=== PATIENT | female | born 1965 | race African-American/Black ===

== ENCOUNTER 2017-10-19 06:13 | Inpatient (IN) | payer OTHER ==
[~2017-10-19] VITALS: Ht 175.3 cm; Wt 63.6 kg
[~2017-10-19 06:13] MED LIST: ATEN25TA PO; HYDR-4174 PO; PHEN12S PR
[2017-10-19] MEDS ORDERED: GABA-529 PO (06:27)
[2017-10-19] MEDS ORDERED: OXYC10 PO (06:27)
[2017-10-19] MEDS ORDERED: SODIUM CHLORIDE 0.9% 1,000 ML IV ONE ×4 (06:30→16:00)
[2017-10-19] MEDS: METOCLOPRAMIDE HCL 5 MG/ML 2 ML VIAL IVP ONE ×2 (06:30→06:31)
[2017-10-19] MEDS ORDERED: PERCT10 PO (06:35)
[2017-10-19] MEDS ORDERED: OMEP10 PO (06:35)
[2017-10-19] MEDS ORDERED: METOCLOPRAMIDE HCL 5 MG/ML 2 ML VIAL IM ONE (06:45)
[2017-10-19 07:58] LABS: BASOPHILS % (AUTO) 0.5 % (0.0-2.0); EOSINOPHILS % (AUTO) 0 % (1.0-6.0); HEMATOCRIT 37.8 % (36-46); LYMPHOCYTES # (AUTO) 0.8 K/uL (1.0-4.8); LYMPHOCYTES % (AUTO) 8.5 % (22.0-44.0); MEAN CORPUSCULAR HGB CONC 34.4 G/dL (31.0-37.0); MEAN CORPUSCULAR VOLUME 87 fL (80-100); MONOCYTES # (AUTO) 0.7 K/uL (0.1-1.0); MONOCYTES % (AUTO) 7.9 % (2.0-9.0); NEUTROPHILS # (AUTO) 7.3 K/uL (1.8-7.7); NEUTROPHILS % (AUTO) 83.1 % (40.0-70.0); PLATELET COUNT (AUTO) 234 K/uL (150-450); RED BLOOD CELL COUNT(AUTO) 4.33 MIL/uL (4.00-5.20); RED CELL DISTRIBUTION WIDTH 16.3 % (11.5-14.5)
[2017-10-19 08:09] LABS: ALANINE AMINOTRANSFERASE 55 U/L (12-78); ALKALINE PHOSPHATASE 61 U/L (46-116); ANION GAP 14 mmol/L (8-16); ASPARTATE AMINOTRANSFERASE 77 U/L (15-37); BILIRUBIN,TOTAL 0.5 mg/dL (0.1-1.0); CALCIUM, TOTAL 9.1 mg/dL (8.8-10.5); CARBON DIOXIDE 29 mmol/L (22-29); CHLORIDE 104 mmol/L (98-107); CREATININE 0.74 mg/dL (0.60-1.30); GLOMERULAR FILTR. RATE CALC > 60 mL/min (>60); GLUCOSE,RANDOM 111 mg/dL (70-110); LIPASE 142 U/L (73-393); SODIUM SERUM 147 mmol/L (136-145); TOTAL PROTEIN, SERUM 8.2 g/dL (6.4-8.2); UREA NITROGEN, BLOOD 14 mg/dL (7-18)
[2017-10-19 08:13] LABS: POTASSIUM 2.6 mmol/L (3.5-5.1)
[2017-10-19] MEDS ORDERED: POTASSIUM CHLORIDE 10% 40 MEQ/30 ML LIQUID UDCUP PO ONE (08:45)
[2017-10-19] MEDS ORDERED: PB/HYOSCY/ATR/SCOP/LIDO/MAALOX 55 ML BOTTLE PO ONE (08:45)
[2017-10-19] MEDS ORDERED: POTASSIUM CHL 10 MEQ/WATER 50 ML IV ONE ×2 (08:45→10:15)
[2017-10-19] MEDS ORDERED: DiphenhydrAMINE HCL 50 MG/ML VIAL IVP ONE (09:15)
[2017-10-19] MEDS ORDERED: 0.9% SODIUM CHLORIDE 10 ML SYRINGE IVP PRN (11:00)
[2017-10-19] MEDS ORDERED: ACETAMINOPHEN 325 MG TABLET PO PRN ×2 (11:00→16:00)
[2017-10-19 11:26] LABS: AMPHET/METH SCREEN,URINE NEGATIVE (NEGATIVE); BARBITURATE SCREEN, URINE NEGATIVE (NEGATIVE); BENZODIAZEPINES SCREEN,URINE NEGATIVE (NEGATIVE); CANNABINOID SCREEN,URINE POSITIVE (NEGATIVE); COCAINE SCREEN,URINE NEGATIVE (NEGATIVE); METHADONE SCREEN, URINE NEGATIVE (NEGATIVE); OPIATE SCREEN,URINE POSITIVE (NEGATIVE)
[2017-10-19 11:27] LABS: PHENCYCLIDINE SCREEN,URINE NEGATIVE (NEGATIVE)
[2017-10-19 11:30] LABS: APPEARANCE,URINE CLOUDY (CLEAR); BILIRUBIN,URINE NEGATIVE (NEGATIVE); GLUCOSE, URINE (UA) NEGATIVE (NEGATIVE); KETONES,URINE >=80 mg/dL (NEGATIVE); LEUKOCYTE ESTERASE ,URINE NEGATIVE (NEGATIVE); NITRATE,URINE NEGATIVE (NEGATIVE); OCCULT BLOOD,URINE LARGE (NEGATIVE); PROTEIN,URINE SEE CONFIRM (NEGATIVE); UROBILINOGEN,URINE 0.2 mg/dL (<=1.0)
[2017-10-19 11:36] VITALS: BP 157/105
[2017-10-19 12:18] LABS: SULFOSALICYLIC ACID,URINE 3+ (Negative)
[2017-10-19 12:20] LABS: BACTERIA,URINE None Seen /HPF (None Seen); SQUAMOUS EPITHELIAL CELL,UR Moderate /LPF (None Seen); YEAST,URINE Few /HPF (None Seen)
[2017-10-19] MEDS: HYDROmorphone 2 MG/ML SYRINGE IVP PRN ×2 (13:01→19:26)
[2017-10-19 15:49] VITALS: BP 197/103
[2017-10-19] MEDS ORDERED: BISACODYL 10 MG RECTAL RECTAL SUPPOSITORY PR PRN (16:00)
[2017-10-19] MEDS ORDERED: ONDANSETRON HCL 4 MG/2 ML VIAL IVP PRN (16:00)
[2017-10-19] MEDS ORDERED: ZOLPIDEM TARTRATE 5 MG TABLET PO PRN (16:00)
[2017-10-19] MEDS ORDERED: MAGNESIUM HYDROXIDE SUSPENSION 30 ML UDCUP PO PRN (16:00)
[2017-10-19] MEDS: HydrALAZINE HCL 50 MG TABLET PO SCH ×2 (17:06→21:44)
[2017-10-19] MEDS: CloNIDine HCL 0.1 MG TABLET PO PRN (17:07)
[2017-10-19] MEDS: HEPARIN SODIUM,PORCINE 5,000 UNITS/ML VIAL SQ SCH ×2 (17:07→23:34)
[2017-10-19] MEDS: METOCLOPRAMIDE HCL 5 MG/ML 2 ML VIAL IVP SCH ×2 (17:10→23:34)
[2017-10-19] MEDS: POTASSIUM CHL 10 MEQ/WATER 50 ML IV PRN (17:51)
[2017-10-19 18:38] VITALS: BP 156/92
[2017-10-19 19:28] VITALS: BP 160/94
[2017-10-19] MEDS: POTASSIUM CHLORIDE 20 MEQ ER TABLET PO PRN (21:39)
[2017-10-19] MEDS: DOCUSATE SODIUM 100 MG CAPSULE PO SCH (21:43)
[2017-10-19] MEDS: PANTOPRAZOLE SODIUM 40 MG/VIAL IVP SCH (21:43)
[2017-10-19 23:13] VITALS: BP 158/95
[2017-10-20] MEDS: HYDROmorphone 2 MG/ML SYRINGE IVP PRN ×2 (01:35→07:41)
[2017-10-20] MEDS: POTASSIUM CHLORIDE 20 MEQ ER TABLET PO PRN (02:17)
[2017-10-20 04:10] VITALS: BP 183/97
[2017-10-20] MEDS: CloNIDine HCL 0.1 MG TABLET PO PRN (04:36)
[2017-10-20 06:46] LABS: BASOPHILS % (AUTO) 0.2 % (0.0-2.0); EOSINOPHILS % (AUTO) 0 % (1.0-6.0); HEMATOCRIT 35.7 % (36-46); HEMOGLOBIN 12.4 g/dL (12.0-16.0); LYMPHOCYTES # (AUTO) 0.9 K/uL (1.0-4.8); LYMPHOCYTES % (AUTO) 12.7 % (22.0-44.0); MEAN CORPUSCULAR HEMOGLOBIN 30.1 pg (26.0-34.0); MEAN CORPUSCULAR HGB CONC 34.6 G/dL (31.0-37.0); MEAN CORPUSCULAR VOLUME 87 fL (80-100); MONOCYTES # (AUTO) 0.4 K/uL (0.1-1.0); MONOCYTES % (AUTO) 5.6 % (2.0-9.0); NEUTROPHILS % (AUTO) 81.5 % (40.0-70.0); PLATELET COUNT (AUTO) 185 K/uL (150-450); RED BLOOD CELL COUNT(AUTO) 4.11 MIL/uL (4.00-5.20); RED CELL DISTRIBUTION WIDTH 16.5 % (11.5-14.5)
[2017-10-20 07:01] LABS: ALANINE AMINOTRANSFERASE 46 U/L (12-78); ALBUMIN 3.5 g/dL (3.4-5.0); ALKALINE PHOSPHATASE 47 U/L (46-116); ANION GAP 11 mmol/L (8-16); ASPARTATE AMINOTRANSFERASE 41 U/L (15-37); BILIRUBIN,TOTAL 0.5 mg/dL (0.1-1.0); CALCIUM, TOTAL 8.3 mg/dL (8.8-10.5); CARBON DIOXIDE 26 mmol/L (22-29); CHLORIDE 100 mmol/L (98-107); CREATININE 0.56 mg/dL (0.60-1.30); GLOMERULAR FILTR. RATE CALC > 60 mL/min (>60); GLUCOSE,RANDOM 98 mg/dL (70-110); SODIUM SERUM 137 mmol/L (136-145); TOTAL PROTEIN, SERUM 7.4 g/dL (6.4-8.2); UREA NITROGEN, BLOOD 11 mg/dL (7-18)
[2017-10-20 07:06] LABS: POTASSIUM 2.7 mmol/L (3.5-5.1)
[2017-10-20 07:30] VITALS: BP 151/100
[2017-10-20] MEDS: HEPARIN SODIUM,PORCINE 5,000 UNITS/ML VIAL SQ SCH (07:44)
[2017-10-20] MEDS: PANTOPRAZOLE SODIUM 40 MG/VIAL IVP SCH (07:44)
[2017-10-20] MEDS: METOCLOPRAMIDE HCL 5 MG/ML 2 ML VIAL IVP SCH (07:44)
[2017-10-20] MEDS: HydrALAZINE HCL 50 MG TABLET PO SCH (07:44)
[2017-10-20] MEDS: DOCUSATE SODIUM 100 MG CAPSULE PO SCH (07:52)
[2017-10-20] MEDS ORDERED: PANTOPRAZOLE SODIUM 40 MG DR TABLET PO SCH (09:00)
[2017-10-20] MEDS ORDERED: GABAPENTIN 100 MG CAPSULE PO SCH (09:00)
[2017-10-20] MEDS ORDERED: ATENOLOL 25 MG TABLET PO SCH (09:00)
[2017-10-20] MEDS ORDERED: SODIUM CHLORIDE 0.9% 500 ML IV ONE (09:22)
[2017-10-20] MEDS: POTASSIUM CHL 10 MEQ/WATER 50 ML IV PRN (09:40)
[2017-10-20 11:41] VITALS: BP 137/83
== END 2017-10-20 12:06 | disposition left against medical advice (07) | DRG 251 ==
LOC: EMS 06:14 → 6N 10:45
PROVIDERS: ADMIT Internal Medicine; ATTEND Internal Medicine
DX: R10.9 Unspecified abdominal pain (principal); I10 Essential (primary) hypertension; E87.6 Hypokalemia; R11.2 Nausea with vomiting, unspecified; G89.29 Other chronic pain; Z87.11 Personal history of peptic ulcer disease; Z87.442 Personal history of urinary calculi; Z90.710 Acquired absence of both cervix and uterus; Z88.2 Allergy status to sulfonamides; Z88.8 Allergy status to other drugs, medicaments and biological substances; Z79.899 Other long term (current) drug therapy; Z90.49 Acquired absence of other specified parts of digestive tract
CPT/HCPCS: 76705; 83735; 84132; 93005; 96365; 96366; 96372; 96375; 99285; C9113; J1170; J1200; J1644; J2765; J3480; J7030; J7040

== ENCOUNTER 2018-12-31 09:30 | Emergency (ER) | payer OTHER ==
[~2018-12-31] VITALS: Ht 175.3 cm; Wt 75.5 kg
[~2018-12-31 09:30] MED LIST changes: +GABA-529 PO; +KDUR20 PO; +OMEP10 PO
[2018-12-31] MEDS ORDERED: HYDROmorphone 2 MG/ML SYRINGE IM ONE (10:45)
[2018-12-31 12:41] VITALS: BP 137/89
== END 2018-12-31 13:13 | disposition home or self-care (01) ==
LOC: EMS 09:32
DX: S93.402A Sprain of unspecified ligament of left ankle, initial encounter (principal); S93.602A Unspecified sprain of left foot, initial encounter; G57.02 Lesion of sciatic nerve, left lower limb; I10 Essential (primary) hypertension; Z88.6 Allergy status to analgesic agent; Z88.2 Allergy status to sulfonamides; Z88.8 Allergy status to other drugs, medicaments and biological substances; Z79.899 Other long term (current) drug therapy; W01.0XXA Fall on same level from slipping, tripping and stumbling without subsequent striking against object, initial encounter; Y93.89 Activity, other specified; Y92.89 Other specified places as the place of occurrence of the external cause; Y99.8 Other external cause status
CPT/HCPCS: 73590; 73610; 73630; 96372; 99283; J1170

== ENCOUNTER 2019-01-18 08:45 | Inpatient (IN) | payer OTHER ==
[~2019-01-18] VITALS: Ht 175.3 cm; Wt 78.3 kg
[~2019-01-18 08:45] MED LIST changes: -HYDR-4174 PO
[2019-01-18] MEDS ORDERED: PROMETHAZINE HCL 25 MG RECTAL SUPPOSITORY PR ONE (09:15)
[2019-01-18] MEDS ORDERED: SODIUM CHLORIDE 0.9% 1,000 ML IV ONE (09:15)
[2019-01-18] MEDS ORDERED: MORPHINE SULFATE 4 MG/ML SYRINGE IVP ONE (10:30)
[2019-01-18 10:56] LABS: ANION GAP 9 mmol/L (8-16); CARBON DIOXIDE 28 mmol/L (22-29); CHLORIDE 103 mmol/L (98-107); CREATININE 0.86 mg/dL (0.60-1.30); GLOMERULAR FILTR. RATE CALC > 60 mL/min (>60); GLUCOSE,RANDOM 116 mg/dL (70-110); POTASSIUM 3.4 mmol/L (3.5-5.1); SODIUM SERUM 140 mmol/L (136-145); UREA NITROGEN, BLOOD 11 mg/dL (7-18)
[2019-01-18 11:02] LABS: BASOPHILS % (AUTO) 0.4 % (0.0-2.0); EOSINOPHILS % (AUTO) 0 % (1.0-6.0); HEMATOCRIT 40.6 % (36-46); HEMOGLOBIN 13.9 g/dL (12.0-16.0); LYMPHOCYTES # (AUTO) 0.9 K/uL (1.0-4.8); LYMPHOCYTES % (AUTO) 12.8 % (22.0-44.0); MEAN CORPUSCULAR HEMOGLOBIN 32.3 pg (26.0-34.0); MEAN CORPUSCULAR HGB CONC 34.3 G/dL (31.0-37.0); MEAN CORPUSCULAR VOLUME 94 fL (80-100); MONOCYTES # (AUTO) 0.2 K/uL (0.1-1.0); MONOCYTES % (AUTO) 2.5 % (2.0-9.0); NEUTROPHILS # (AUTO) 6.2 K/uL (1.8-7.7); NEUTROPHILS % (AUTO) 84.3 % (40.0-70.0); RED BLOOD CELL COUNT(AUTO) 4.31 MIL/uL (4.00-5.20); RED CELL DISTRIBUTION WIDTH 14.1 % (11.5-14.5)
[2019-01-18 11:07] LABS: ALANINE AMINOTRANSFERASE 29 U/L (12-78); ALBUMIN 3.9 g/dL (3.4-5.0); ALKALINE PHOSPHATASE 69 U/L (46-116); ASPARTATE AMINOTRANSFERASE 18 U/L (15-37); BILIRUBIN,TOTAL 0.2 mg/dL (0.1-1.0); HCG,QUANTITATIVE 1 mIU/mL (0-6); LIPASE 45 U/L (73-393); TOTAL PROTEIN, SERUM 8.6 g/dL (6.4-8.2)
[2019-01-18 11:25] LABS: PLATELET COUNT (AUTO) 160 K/uL (150-450)
[2019-01-18] MEDS ORDERED: LORazepam 2 MG/ML VIAL IVP ONE ×2 (12:30→13:30)
[2019-01-18] MEDS ORDERED: KETOROLAC TROMETHAMINE 30 MG/ML VIAL IVP ONE (13:30)
[2019-01-18] MEDS ORDERED: GADOBUTROL 1 MMOL/ML 10 ML VIAL IVP ONE (13:35)
[2019-01-18 13:48] LABS: APPEARANCE,URINE CLEAR (CLEAR); BILIRUBIN,URINE NEGATIVE (NEGATIVE); GLUCOSE, URINE (UA) 100 mg/dL (NEGATIVE); KETONES,URINE NEGATIVE (NEGATIVE); LEUKOCYTE ESTERASE ,URINE NEGATIVE (NEGATIVE); NITRATE,URINE NEGATIVE (NEGATIVE); OCCULT BLOOD,URINE MODERATE (NEGATIVE); PROTEIN,URINE POS 1+ (NEGATIVE); UROBILINOGEN,URINE 0.2 mg/dL (<=1.0)
[2019-01-18 14:13] LABS: BACTERIA,URINE None Seen /HPF (None Seen); SQUAMOUS EPITHELIAL CELL,UR Moderate /LPF (None Seen); WBC,URINE None Seen /HPF (0-5)
[2019-01-18] MEDS ORDERED: ACETAMINOPHEN 325 MG TABLET PO PRN ×2 (14:15→21:15)
[2019-01-18] MEDS ORDERED: 0.9% SODIUM CHLORIDE 10 ML SYRINGE IVP PRN (14:15)
[2019-01-18 15:20] VITALS: BP 140/74
[2019-01-18] MEDS ORDERED: PROMETHAZINE HCL 25 MG RECTAL SUPPOSITORY PR PRN (17:15)
[2019-01-18] MEDS ORDERED: PROMETHAZINE HCL 25 MG TABLET PO PRN (17:15)
[2019-01-18] MEDS: MORPHINE SULFATE 2 MG/ML SYRINGE IVP PRN ×2 (17:36→22:04)
[2019-01-18] MEDS: DEXTROSE 5%-0.45% SODIUM CHL 1,000 ML IV SCH (17:37)
[2019-01-18 20:40] VITALS: BP 168/91
[2019-01-18] MEDS ORDERED: IPRATROPIUM BROMIDE 0.5 MG/2.5 ML NEB SOLUTION NEB PRN (21:15)
[2019-01-18] MEDS ORDERED: MORPHINE SULFATE 2 MG/ML SYRINGE IVP PRN (21:15)
[2019-01-18] MEDS ORDERED: MAGNESIUM HYDROXIDE SUSPENSION 30 ML UDCUP PO PRN (21:15)
[2019-01-18] MEDS ORDERED: ALBUTEROL SULFATE 2.5 MG/0.5 ML NEB SOLUTION NEB PRN (21:15)
[2019-01-18] MEDS ORDERED: BISACODYL 10 MG RECTAL RECTAL SUPPOSITORY PR PRN (21:15)
[2019-01-18] MEDS ORDERED: ONDANSETRON HCL 4 MG/2 ML VIAL IVP PRN (21:15)
[2019-01-18] MEDS ORDERED: HYDROCODONE/ACETAMINOPHEN 5-325 MG TABLET PO PRN (21:15)
[2019-01-18] MEDS ORDERED: ZOLPIDEM TARTRATE 5 MG TABLET PO PRN (21:15)
[2019-01-18] MEDS: HEPARIN SODIUM,PORCINE 5,000 UNITS/ML VIAL SQ SCH (23:31)
[2019-01-18 23:35] VITALS: BP 154/83
[2019-01-19] MEDS ORDERED: GABAPENTIN 100 MG CAPSULE PO ONE (00:15)
[2019-01-19] MEDS: HYDROmorphone 2 MG/ML SYRINGE IVP PRN ×3 (00:25→07:53)
[2019-01-19 05:35] VITALS: BP 109/68
[2019-01-19 06:16] LABS: BASOPHILS % (AUTO) 0.4 % (0.0-2.0); EOSINOPHILS % (AUTO) 0 % (1.0-6.0); HEMATOCRIT 37.2 % (36-46); HEMOGLOBIN 12.5 g/dL (12.0-16.0); LYMPHOCYTES # (AUTO) 1.6 K/uL (1.0-4.8); LYMPHOCYTES % (AUTO) 18.7 % (22.0-44.0); MEAN CORPUSCULAR HEMOGLOBIN 31.9 pg (26.0-34.0); MEAN CORPUSCULAR HGB CONC 33.7 G/dL (31.0-37.0); MEAN CORPUSCULAR VOLUME 95 fL (80-100); MONOCYTES # (AUTO) 0.7 K/uL (0.1-1.0); NEUTROPHILS # (AUTO) 6.2 K/uL (1.8-7.7); NEUTROPHILS % (AUTO) 72.9 % (40.0-70.0); PLATELET COUNT (AUTO) 181 K/uL (150-450); RED BLOOD CELL COUNT(AUTO) 3.93 MIL/uL (4.00-5.20); RED CELL DISTRIBUTION WIDTH 14.4 % (11.5-14.5)
[2019-01-19 06:30] LABS: ALANINE AMINOTRANSFERASE 20 U/L (12-78); ALBUMIN 3.7 g/dL (3.4-5.0); ALKALINE PHOSPHATASE 53 U/L (46-116); ANION GAP 7 mmol/L (8-16); ASPARTATE AMINOTRANSFERASE 15 U/L (15-37); BILIRUBIN,TOTAL 0.3 mg/dL (0.1-1.0); CALCIUM, TOTAL 8.3 mg/dL (8.8-10.5); CARBON DIOXIDE 29 mmol/L (22-29); CHLORIDE 100 mmol/L (98-107); CREATININE 0.82 mg/dL (0.60-1.30); GLOMERULAR FILTR. RATE CALC > 60 mL/min (>60); GLUCOSE,RANDOM 107 mg/dL (70-110); POTASSIUM 3.1 mmol/L (3.5-5.1); SODIUM SERUM 136 mmol/L (136-145); TOTAL PROTEIN, SERUM 7.8 g/dL (6.4-8.2); UREA NITROGEN, BLOOD 17 mg/dL (7-18)
[2019-01-19 07:50] VITALS: BP 132/78
[2019-01-19] MEDS: HEPARIN SODIUM,PORCINE 5,000 UNITS/ML VIAL SQ SCH (07:53)
[2019-01-19] MEDS: DEXTROSE 5%-0.45% SODIUM CHL 1,000 ML IV SCH (07:58)
[2019-01-19] MEDS ORDERED: ATENOLOL 25 MG TABLET PO SCH (09:00)
[2019-01-19] MEDS ORDERED: GABAPENTIN 100 MG CAPSULE PO SCH (09:00)
[2019-01-19] MEDS ORDERED: OMEPRAZOLE 10 MG CAPSULE PO SCH (09:00)
[2019-01-19] MEDS ORDERED: DOCUSATE SODIUM 100 MG CAPSULE PO SCH (09:00)
[2019-01-19] MEDS ORDERED: POTASSIUM CHLORIDE 20 MEQ ER TABLET PO SCH (09:00)
== END 2019-01-19 10:06 | disposition left against medical advice (07) ==
LOC: EMS 08:46 → 6N 14:51
PROVIDERS: ADMIT Hospitalist; ATTEND Hospitalist
DX: K80.80 Other cholelithiasis without obstruction (principal); K80.50 Calculus of bile duct without cholangitis or cholecystitis without obstruction; E87.6 Hypokalemia; K83.8 Other specified diseases of biliary tract; I10 Essential (primary) hypertension; M19.90 Unspecified osteoarthritis, unspecified site; M54.30 Sciatica, unspecified side; Z90.49 Acquired absence of other specified parts of digestive tract; Z90.710 Acquired absence of both cervix and uterus; Z98.51 Tubal ligation status; Z88.2 Allergy status to sulfonamides; Z88.8 Allergy status to other drugs, medicaments and biological substances; Z87.11 Personal history of peptic ulcer disease; Z87.442 Personal history of urinary calculi
CPT/HCPCS: 74183; 76700; 93005; 96374; 96375; A9585; J1170; J1644; J1885; J2060; J2270; J7030

== ENCOUNTER 2019-05-04 15:32 | Inpatient (IN) | payer OTHER ==
[~2019-05-04] VITALS: Ht 175.3 cm; Wt 76.7 kg
[2019-05-04] MEDS ORDERED: OXYC-601 PO (15:58)
[2019-05-04] MEDS ORDERED: DULO30CA2 PO (15:58)
[2019-05-04] MEDS ORDERED: GABA-533 PO (15:58)
[2019-05-04 16:40] LABS: BASOPHILS % (AUTO) 0.5 % (0.0-2.0); EOSINOPHILS % (AUTO) 0.2 % (1.0-6.0); HEMATOCRIT 42.1 % (36-46); HEMOGLOBIN 14.3 g/dL (12.0-16.0); LYMPHOCYTES % (AUTO) 10.6 % (22.0-44.0); MEAN CORPUSCULAR HEMOGLOBIN 31.1 pg (26.0-34.0); MEAN CORPUSCULAR HGB CONC 33.9 G/dL (31.0-37.0); MEAN CORPUSCULAR VOLUME 92 fL (80-100); MONOCYTES # (AUTO) 0.5 K/uL (0.1-1.0); MONOCYTES % (AUTO) 5.6 % (2.0-9.0); NEUTROPHILS # (AUTO) 7.8 K/uL (1.8-7.7); NEUTROPHILS % (AUTO) 83.1 % (40.0-70.0); RED BLOOD CELL COUNT(AUTO) 4.59 MIL/uL (4.00-5.20); RED CELL DISTRIBUTION WIDTH 14.5 % (11.5-14.5)
[2019-05-04 16:53] LABS: ANION GAP 13 mmol/L (8-16); CALCIUM, TOTAL 9.9 mg/dL (8.8-10.5); CARBON DIOXIDE 26 mmol/L (22-29); CHLORIDE 102 mmol/L (98-107); CREATININE 0.87 mg/dL (0.60-1.30); GLOMERULAR FILTR. RATE CALC > 60 mL/min (>60); GLUCOSE,RANDOM 128 mg/dL (70-110); POTASSIUM 3.3 mmol/L (3.5-5.1); SODIUM SERUM 141 mmol/L (136-145); UREA NITROGEN, BLOOD 12 mg/dL (7-18)
[2019-05-04 16:58] LABS: ALANINE AMINOTRANSFERASE 30 U/L (12-78); ALBUMIN 4.3 g/dL (3.4-5.0); ALKALINE PHOSPHATASE 68 U/L (46-116); ASPARTATE AMINOTRANSFERASE 20 U/L (15-37); BILIRUBIN,TOTAL 0.4 mg/dL (0.1-1.0); LIPASE 31 U/L (73-393)
[2019-05-04] MEDS ORDERED: DiphenhydrAMINE HCL 50 MG/ML VIAL IVP ONE (17:00)
[2019-05-04] MEDS ORDERED: MORPHINE SULFATE 4 MG/ML SYRINGE IVP ONE (17:00)
[2019-05-04] MEDS ORDERED: METOCLOPRAMIDE HCL 5 MG/ML 2 ML VIAL IVP ONE (17:00)
[2019-05-04] MEDS ORDERED: SODIUM CHLORIDE 0.9% 1,000 ML IV ONE (17:30)
[2019-05-04 17:54] LABS: PLATELET COUNT (AUTO) 197 K/uL (150-450)
[2019-05-04 18:38] LABS: AMPHET/METH SCREEN,URINE NEGATIVE (NEGATIVE); BARBITURATE SCREEN, URINE NEGATIVE (NEGATIVE); BENZODIAZEPINES SCREEN,URINE NEGATIVE (NEGATIVE); CANNABINOID SCREEN,URINE POSITIVE (NEGATIVE); COCAINE SCREEN,URINE NEGATIVE (NEGATIVE); METHADONE SCREEN, URINE NEGATIVE (NEGATIVE); OPIATE SCREEN,URINE POSITIVE (NEGATIVE)
[2019-05-04 18:46] LABS: APPEARANCE,URINE CLOUDY (CLEAR); BILIRUBIN,URINE NEGATIVE (NEGATIVE); GLUCOSE, URINE (UA) 100 mg/dL (NEGATIVE); KETONES,URINE NEGATIVE (NEGATIVE); LEUKOCYTE ESTERASE ,URINE NEGATIVE (NEGATIVE); NITRATE,URINE NEGATIVE (NEGATIVE); OCCULT BLOOD,URINE LARGE (NEGATIVE); PROTEIN,URINE SEE CONFIRM (NEGATIVE); UROBILINOGEN,URINE 0.2 mg/dL (<=1.0)
[2019-05-04 18:47] LABS: PHENCYCLIDINE SCREEN,URINE NEGATIVE (NEGATIVE)
[2019-05-04 18:54] LABS: SULFOSALICYLIC ACID,URINE 4+ (Negative)
[2019-05-04 18:55] LABS: BACTERIA,URINE Few /HPF (None Seen); MUCUS,URINE Moderate LPF (None Seen); SQUAMOUS EPITHELIAL CELL,UR Moderate /LPF (None Seen); WBC,URINE 0-2 /HPF (0-5); YEAST,URINE Rare /HPF (None Seen)
[2019-05-04] MEDS ORDERED: PIPERACILLIN/TAZO 3.375 GM/D5W 50 ML IV ONE (19:15)
[2019-05-04] MEDS ORDERED: POTASSIUM CHLORIDE 10% 40 MEQ/30 ML LIQUID UDCUP PO ONE (19:30)
[2019-05-04] MEDS ORDERED: POTASSIUM CHLORIDE 20 MEQ ER TABLET PO PRN (20:15)
[2019-05-04] MEDS ORDERED: MAGNESIUM HYDROXIDE SUSPENSION 30 ML UDCUP PO PRN (20:15)
[2019-05-04] MEDS ORDERED: ACETAMINOPHEN 325 MG TABLET PO PRN (20:15)
[2019-05-04] MEDS: DOCUSATE SODIUM 100 MG CAPSULE PO SCH (20:48)
[2019-05-04 22:50] VITALS: BP 159/107
[2019-05-04] MEDS: MORPHINE SULFATE 2 MG/ML SYRINGE IVP PRN (23:58)
[2019-05-05] MEDS: MORPHINE SULFATE 2 MG/ML SYRINGE IVP PRN ×5 (03:36→23:28)
[2019-05-05 04:36] VITALS: BP 161/106
[2019-05-05] MEDS: OxyCODONE HCL/ACETAMINOPHEN 5-325 MG TABLET PO PRN (05:22)
[2019-05-05] MEDS ORDERED: CloNIDine HCL 0.1 MG TABLET PO PRN (05:45)
[2019-05-05 07:18] LABS: BASOPHILS % (AUTO) 0.1 % (0.0-2.0); EOSINOPHILS % (AUTO) 0 % (1.0-6.0); HEMATOCRIT 39.1 % (36-46); HEMOGLOBIN 13.2 g/dL (12.0-16.0); LYMPHOCYTES # (AUTO) 1.3 K/uL (1.0-4.8); LYMPHOCYTES % (AUTO) 16.9 % (22.0-44.0); MEAN CORPUSCULAR HEMOGLOBIN 31.2 pg (26.0-34.0); MEAN CORPUSCULAR HGB CONC 33.8 G/dL (31.0-37.0); MEAN CORPUSCULAR VOLUME 92 fL (80-100); MONOCYTES # (AUTO) 0.7 K/uL (0.1-1.0); MONOCYTES % (AUTO) 8.6 % (2.0-9.0); NEUTROPHILS # (AUTO) 5.6 K/uL (1.8-7.7); NEUTROPHILS % (AUTO) 74.4 % (40.0-70.0); PLATELET COUNT (AUTO) 164 K/uL (150-450); RED BLOOD CELL COUNT(AUTO) 4.24 MIL/uL (4.00-5.20); RED CELL DISTRIBUTION WIDTH 14.7 % (11.5-14.5)
[2019-05-05 07:51] LABS: ALANINE AMINOTRANSFERASE 29 U/L (12-78); ALKALINE PHOSPHATASE 60 U/L (46-116); ANION GAP 10 mmol/L (8-16); ASPARTATE AMINOTRANSFERASE 18 U/L (15-37); BILIRUBIN,TOTAL 0.5 mg/dL (0.1-1.0); CALCIUM, TOTAL 9.2 mg/dL (8.8-10.5); CARBON DIOXIDE 28 mmol/L (22-29); CHLORIDE 103 mmol/L (98-107); GLOMERULAR FILTR. RATE CALC > 60 mL/min (>60); GLUCOSE,RANDOM 115 mg/dL (70-110); POTASSIUM 3.1 mmol/L (3.5-5.1); SODIUM SERUM 141 mmol/L (136-145); TOTAL PROTEIN, SERUM 8.2 g/dL (6.4-8.2); UREA NITROGEN, BLOOD 12 mg/dL (7-18)
[2019-05-05 08:15] VITALS: BP 156/89
[2019-05-05] MEDS: DOCUSATE SODIUM 100 MG CAPSULE PO SCH ×2 (09:00→20:33)
[2019-05-05] MEDS ORDERED: METOCLOPRAMIDE HCL 5 MG/ML 2 ML VIAL IVP PRN (10:30)
[2019-05-05] MEDS ORDERED: MEBROFENIN TC99M/MCL ISOTOPE 1 EA INJ INJ ONE (11:10)
[2019-05-05] MEDS ORDERED: SODIUM CHLORIDE 0.9% 500 ML IV ONE (11:27)
[2019-05-05] MEDS ORDERED: PROMETHAZINE HCL 25 MG RECTAL SUPPOSITORY PR PRN (11:30)
[2019-05-05] MEDS: PANTOPRAZOLE SODIUM 40 MG/VIAL IVP SCH (11:43)
[2019-05-05 11:51] VITALS: BP 154/81
[2019-05-05] MEDS ORDERED: DEXAMETHASONE SOD PHOS 4 MG/ML VIAL IVP ONE (12:00)
[2019-05-05] MEDS ORDERED: PROPOFOL 1% 20 ML VIAL IVP ONE (12:00)
[2019-05-05] MEDS ORDERED: LIDOCAINE 1% 10 ML VIAL INJ ONE (12:00)
[2019-05-05] MEDS ORDERED: EPHEDrine SULFATE 50 MG/ML VIAL IM ONE (12:00)
[2019-05-05] MEDS ORDERED: MORPHINE SULFATE 4 MG/ML SYRINGE IVP ONE (12:00)
[2019-05-05] MEDS ORDERED: SUCCINYLCHOLINE CHLORIDE 20 MG/ML 10 ML VIAL IVP ONE (12:00)
[2019-05-05] MEDS ORDERED: FentaNYL CITRATE-PF 100 MCG/2 ML VIAL IVP ONE (12:00)
[2019-05-05] MEDS ORDERED: 0.9% SODIUM CHLORIDE 10 ML VIAL IVP ONE (12:00)
[2019-05-05] MEDS ORDERED: MIDAZOLAM HCL 2 MG/2 ML VIAL IVP ONE (12:00)
[2019-05-05] MEDS ORDERED: ROCURONIUM BROMIDE 10 MG/ML 5 ML VIAL IVP ONE (12:00)
[2019-05-05] MEDS ORDERED: KETOROLAC TROMETHAMINE 60 MG/2 ML VIAL IM ONE (12:00)
[2019-05-05] MEDS: POTASSIUM CHL 10 MEQ/WATER 50 ML IV PRN ×2 (13:59→22:12)
[2019-05-05] MEDS ORDERED: RINGERS SOLUTION,LACTATED 1,000 ML IV ONE (14:59)
[2019-05-05] MEDS ORDERED: SODIUM CL IRRIG SOLN BAG 3,000 ML IRRIG ONE (15:47)
[2019-05-05] MEDS ORDERED: BUPIVACAINE 0.25%/EPI 1:200,000/PF 10 ML VIAL ONE (15:47)
[2019-05-05] MEDS ORDERED: IOHEXOL 240 MG/ML 20 ML VIAL ONE (15:48)
[2019-05-05] MEDS: HYDROmorphone 2 MG/ML SYRINGE IVP PRN ×3 (17:52→18:12)
[2019-05-05] MEDS ORDERED: HYDROmorphone 2 MG/ML SYRINGE ONE (17:52)
[2019-05-05] MEDS ORDERED: ACETAMINOPHEN 1000 MG/ISO-OSM 100 ML IV ONE (17:57)
[2019-05-05] MEDS ORDERED: ACETAMINOPHEN 1000 MG/ISO-OSM 100 ML IV SCH (18:05)
[2019-05-05] MEDS ORDERED: MEPERIDINE-PF 25 MG/ML VIAL ONE (18:05)
[2019-05-05] MEDS ORDERED: MEPERIDINE-PF 25 MG/ML VIAL IVP PRN (18:15)
[2019-05-05] MEDS ORDERED: NALOXONE HCL 1 MG/ML 2 ML SYG IVP PRN (18:15)
[2019-05-05 18:57] VITALS: BP 152/84
[2019-05-05 20:03] VITALS: BP 130/97
[2019-05-05] MEDS ORDERED: TEMAZEPAM 7.5 MG CAPSULE PO PRN (23:45)
[2019-05-05 23:47] VITALS: BP 130/95
[2019-05-06] MEDS: POTASSIUM CHL 10 MEQ/WATER 50 ML IV PRN (00:32)
[2019-05-06] MEDS: MORPHINE SULFATE 2 MG/ML SYRINGE IVP PRN ×3 (03:21→11:23)
[2019-05-06 07:40] LABS: BASOPHILS % (AUTO) 0.2 % (0.0-2.0); EOSINOPHILS % (AUTO) 0 % (1.0-6.0); HEMATOCRIT 36.4 % (36-46); HEMOGLOBIN 12.3 g/dL (12.0-16.0); LYMPHOCYTES # (AUTO) 1.2 K/uL (1.0-4.8); LYMPHOCYTES % (AUTO) 14.4 % (22.0-44.0); MEAN CORPUSCULAR HEMOGLOBIN 31.4 pg (26.0-34.0); MEAN CORPUSCULAR HGB CONC 33.7 G/dL (31.0-37.0); MEAN CORPUSCULAR VOLUME 93 fL (80-100); MONOCYTES # (AUTO) 0.5 K/uL (0.1-1.0); MONOCYTES % (AUTO) 6.5 % (2.0-9.0); NEUTROPHILS # (AUTO) 6.7 K/uL (1.8-7.7); NEUTROPHILS % (AUTO) 78.9 % (40.0-70.0); RED CELL DISTRIBUTION WIDTH 14.3 % (11.5-14.5)
[2019-05-06 07:42] LABS: PLATELET COUNT (AUTO) 154 K/uL (150-450)
[2019-05-06 08:10] LABS: ALANINE AMINOTRANSFERASE 61 U/L (12-78); ALBUMIN 3.4 g/dL (3.4-5.0); ALKALINE PHOSPHATASE 51 U/L (46-116); ANION GAP 7 mmol/L (8-16); ASPARTATE AMINOTRANSFERASE 60 U/L (15-37); BILIRUBIN,TOTAL 0.5 mg/dL (0.1-1.0); CALCIUM, TOTAL 8.7 mg/dL (8.8-10.5); CARBON DIOXIDE 30 mmol/L (22-29); CHLORIDE 103 mmol/L (98-107); GLOMERULAR FILTR. RATE CALC > 60 mL/min (>60); GLUCOSE,RANDOM 102 mg/dL (70-110); POTASSIUM 3.8 mmol/L (3.5-5.1); SODIUM SERUM 140 mmol/L (136-145); TOTAL PROTEIN, SERUM 7.3 g/dL (6.4-8.2); UREA NITROGEN, BLOOD 17 mg/dL (7-18)
[2019-05-06 08:57] VITALS: BP 161/93
[2019-05-06] MEDS: DOCUSATE SODIUM 100 MG CAPSULE PO SCH (09:08)
[2019-05-06] MEDS: PANTOPRAZOLE SODIUM 40 MG/VIAL IVP SCH (09:09)
[2019-05-06] MEDS: OxyCODONE HCL/ACETAMINOPHEN 5-325 MG TABLET PO PRN (09:09)
[2019-05-06] MEDS ORDERED: HYDR-4061 PO (10:55)
[2019-05-06] MEDS ORDERED: DOCU-275 PO (10:56)
[2019-05-06 11:35] VITALS: BP 146/91
== END 2019-05-06 13:37 | disposition home or self-care (01) | DRG 263 ==
LOC: EMS 15:34 → 6N 22:00
PROVIDERS: ADMIT Internal Medicine; ATTEND Internal Medicine
PROC: BF14YZZ Fluoroscopy of Gallbladder, Bile Ducts and Pancreatic Ducts using Other Contrast (ICD-10-PCS; 2019-05-05)
PROC: 0FT44ZZ Resection of Gallbladder, Percutaneous Endoscopic Approach (ICD-10-PCS; principal; 2019-05-05 16:00)
DX: K82.8 Other specified diseases of gallbladder (principal); F11.20 Opioid dependence, uncomplicated; G81.94 Hemiplegia, unspecified affecting left nondominant side; I10 Essential (primary) hypertension; G89.4 Chronic pain syndrome; M19.90 Unspecified osteoarthritis, unspecified site; M54.30 Sciatica, unspecified side; F12.90 Cannabis use, unspecified, uncomplicated; K83.8 Other specified diseases of biliary tract; Z82.49 Family history of ischemic heart disease and other diseases of the circulatory system; Z87.442 Personal history of urinary calculi; Z87.11 Personal history of peptic ulcer disease; Z90.710 Acquired absence of both cervix and uterus; Z90.49 Acquired absence of other specified parts of digestive tract; Z88.2 Allergy status to sulfonamides; Z88.6 Allergy status to analgesic agent; Z88.8 Allergy status to other drugs, medicaments and biological substances; Z79.899 Other long term (current) drug therapy; Z98.51 Tubal ligation status
CPT/HCPCS: 76705; 78226; 88304; 96374; 96375; A9537; C9113; J0131; J0330; J0690; J1100; J1170; J1200; J1885; J2175; J2250; J2270; J2543; J2704; J2765; J3010; J3480; J3490; J7030; J7040; J7120; Q9966

== ENCOUNTER 2020-12-31 09:16 | Emergency (ER) | payer OTHER ==
[~2020-12-31] VITALS: Ht 175.3 cm; Wt 84.1 kg
[~2020-12-31 09:16] MED LIST changes: -ATEN25TA PO; +DOCU-270 PO; +DULO30CA89 PO; -GABA-529 PO; +HYDR-4061 PO; -KDUR20 PO; -OMEP10 PO; -PHEN12S PR
[2020-12-31 10:49] VITALS: BP 124/75
== END 2020-12-31 10:55 | disposition home or self-care (01) ==
LOC: EMS 09:16
DX: S63.612A Unspecified sprain of right middle finger, initial encounter (principal); S80.01XA Contusion of right knee, initial encounter; I10 Essential (primary) hypertension; M19.90 Unspecified osteoarthritis, unspecified site; W19.XXXA Unspecified fall, initial encounter; K80.80 Other cholelithiasis without obstruction; Y93.9 Activity, unspecified; Y92.89 Other specified places as the place of occurrence of the external cause; Y99.9 Unspecified external cause status; Z91.81 History of falling
CPT/HCPCS: 99284; 73130-TC; 73562-TC; Z7502